=== PATIENT | male | born 1980 | race Caucasian/White ===

== ENCOUNTER 2017-07-30 18:07 | Inpatient (IN) | payer OTHER ==
[~2017-07-30] VITALS: Ht 182.9 cm; Wt 88.0 kg
[2017-07-30] MEDS ORDERED: ASPIRIN 81 MG TAB.CHEW PO ONE (18:30)
[2017-07-30] MEDS ORDERED: KETOROLAC TROMETHAMINE INJ 30 MG/ML VIAL IV ONE (18:30)
[2017-07-30] MEDS ORDERED: IV NS 0.9% 1,000 ML BAG IV ONE (18:30)
--- NOTE | 2017-07-30 18:34 | NUR ---
RAC #18 IV ACCESS. BLOOD SAMPLE COLLECTED SENT TO LAB
--- NOTE | 2017-07-30 18:35 | NUR ---
EKG IN PROGRESS
--- NOTE | 2017-07-30 18:36 | NUR ---
Pt c/o pain in left calf, 5/10, for about 1 week and pain in left chest, 5/10, hurts worse when taking deep breath, started today after flight. Pt states he has been traveling extensively recently. Pt denies SOB, dizziness, n/v, no other complaints, no distress noted.
[2017-07-30 18:37] LABS: BASOPHILS # (AUTO) 0.1 /CMM (0.0-0.2); BASOPHILS % (AUTO) 0.5 % (0.0-2.0); EOSINOPHILS # (AUTO) 0.1 /CMM (0.0-0.7); EOSINOPHILS % (AUTO) 0.8 % (0.0-6.0); HEMATOCRIT 45 % (39-51); HEMOGLOBIN 15.2 g/dL (13.5-17.5); LYMPHOCYTES # (AUTO) 2.8 /CMM (0.8-4.8); LYMPHOCYTES % (AUTO) 23.5 % (20.0-44.0); MEAN CORPUSCULAR HEMOGLOBIN 31 PG (26.0-33.0); MEAN CORPUSCULAR HGB CONC 34 g/dl (31.0-36.0); MEAN CORPUSCULAR VOLUME 91 fL (80-96); MONOCYTES # (AUTO) 0.7 /CMM (0.1-1.30); MONOCYTES % (AUTO) 5.7 % (2.0-12.0); NEUTROPHILS # (AUTO) 8.3 /CMM (1.8-8.9); NEUTROPHILS % (AUTO) 69.5 % (43.0-81.0); PLATELET COUNT (AUTO) 192 /CMM (150-450); RDW COEFFICIENT OF VARIATION 12.1 (11.5-15.0); RED BLOOD CELL COUNT(AUTO) 4.96 MIL/uL (4.5-6.0)
[2017-07-30] MEDS ORDERED: KETOROLAC TROMETHAMINE INJ 30 MG/ML VIAL ONE (18:46)
[2017-07-30] MEDS ORDERED: ASPIRIN 81 MG TAB.CHEW ONE (18:46)
[2017-07-30 18:49] LABS: CALCIUM, SERUM 8.9 mg/dL (8.5-10.1); CARBON DIOXIDE 31 mmol/L (21-32); CHLORIDE 99 mmol/L (98-107); CREATININE 1.1 mg/dL (0.6-1.3); GLUCOSE 102 mg/dL (74-106); POTASSIUM 3.7 mmol/L (3.5-5.1); SODIUM SERUM 136 mmol/L (136-145); UREA NITROGEN, BLOOD 16 mg/dL (7-18)
[2017-07-30 18:51] LABS: INR 0.92 (0.87-1.13); PROTHROMBIN TIME 9.6 SECS (9.5-12.7)
[2017-07-30 18:55] LABS: ALANINE AMINOTRANSFERASE 29 U/L (12-78); ALBUMIN 4.1 g/dL (3.4-5.0); ALKALINE PHOSPHATASE 72 U/L (46-116); ASPARTATE AMINOTRANSFERASE 18 U/L (15-37); BILIRUBIN,DIRECT 0.1 mg/dL (0.0-0.2); BILIRUBIN,TOTAL 0.4 mg/dL (0.2-1.0); TOTAL PROTEIN, SERUM 7.6 g/dL (6.4-8.2)
[2017-07-30] MEDS ORDERED: IV NS 0.9% 250 ML IV ONE (18:59)
[2017-07-30] MEDS ORDERED: IOHEXOL-350 100 ML VIAL IV ONE (18:59)
[2017-07-30 19:02] LABS: TROPONIN I < 0.017 ng/mL (0.00-0.056)
[2017-07-30] MEDS ORDERED: ENOXAPARIN SODIUM 60 MG/0.6 ML DISP.SYRIN SQ ONE ×2 (20:00→20:20)
--- NOTE | 2017-07-30 20:06 | NUR ---
ER MD AT BEDSIDE TALKING TO PT REGARDING CT RESULT AND HOSPITAL ADMISSION. PT AGREED.
--- NOTE | 2017-07-30 20:06 | NUR ---
PT WILL BE GOING TO [facility].
--- NOTE | 2017-07-30 20:19 | NUR ---
REPORT CALLED TO PRODUCT INSPECTION SUPERVISOR ELSA. ER SPOKE TO DR. SULTANA REGARDING PT ADMISSION.
[2017-07-30] MEDS ORDERED: ENOXAPARIN SODIUM 30 MG/0.3 ML DISP.SYRIN ONE (20:20)
--- NOTE | 2017-07-30 20:24 | NUR ---
DR. SULTANA AT BEDSIDE TO [facility] PT.
[2017-07-30 20:50] VITALS: BP 138/83
--- NOTE | 2017-07-30 20:50 | NUR ---
RN [facility] ADMIT NOTES PT RECEIVED FROM THE ED VIA STRETCHER. UNDER DR SULTANA WITH ADMITTING DX ERIBERTO PE. PT A&OX4,AMBULATORY, VSS, AFEBRILE , NO SOB,NO DISTRESS, NO PAIN AT THIS TIME, SKIN ASSESSMENT DONE INTACT. PT ON TELE SR ON MONITOR. ADMISSION RETAIN CARE RENDERED. ALL NEEDS ATTENDED TO CALL LIGHT WITH IN REACH. PT IS RESTING COMFORTABLE IN BED. RN WILL CONTINUE TO MONITOR.
[2017-07-30] MEDS ORDERED: MAG HYDROX/AL HYDROX/SIMETH 30 ML UDC PO PRN (21:00)
[2017-07-30] MEDS ORDERED: HYDROCODONE/APAP 5/325MG 1 EACH TABLET PO PRN (21:00)
[2017-07-30] MEDS ORDERED: ZOLPIDEM TARTRATE 5 MG TABLET PO PRN (21:00)
[2017-07-30] MEDS ORDERED: Z GUARD REMEDY 2 OZ OINT TP PRN (21:00)
[2017-07-30] MEDS ORDERED: MAGNESIUM HYDROXIDE 30 ML UDC PO PRN (21:00)
[2017-07-30] MEDS ORDERED: ONDANSETRON HCL/PF 4 MG/2 ML VIAL IVP PRN (21:00)
[2017-07-30] MEDS ORDERED: ACETAMINOPHEN 325 MG TABLET PO PRN (21:00)
[2017-07-31] VITALS: BP 131/79
[2017-07-31 04:00] VITALS: BP 137/86
[2017-07-31 06:32] LABS: BASOPHILS % (AUTO) 0.3 % (0.0-2.0); EOSINOPHILS # (AUTO) 0.1 /CMM (0.0-0.7); HEMATOCRIT 42 % (39-51); HEMOGLOBIN 14.4 g/dL (13.5-17.5); LYMPHOCYTES % (AUTO) 25.6 % (20.0-44.0); MEAN CORPUSCULAR HEMOGLOBIN 31 PG (26.0-33.0); MEAN CORPUSCULAR HGB CONC 35 g/dl (31.0-36.0); MEAN CORPUSCULAR VOLUME 90 fL (80-96); MONOCYTES # (AUTO) 0.6 /CMM (0.1-1.30); MONOCYTES % (AUTO) 7.4 % (2.0-12.0); NEUTROPHILS # (AUTO) 5.1 /CMM (1.8-8.9); NEUTROPHILS % (AUTO) 65.7 % (43.0-81.0); PLATELET COUNT (AUTO) 154 /CMM (150-450); RDW COEFFICIENT OF VARIATION 12.5 (11.5-15.0); RED BLOOD CELL COUNT(AUTO) 4.62 MIL/uL (4.5-6.0); WHITE BLOOD COUNT (AUTO) 7.8 K/uL (4.3-11.0)
--- NOTE | 2017-07-31 07:06 | NUR ---
[facility] RN NOTES PTS REMAINS IN BED COMFORTABLE, ENDORSE TO RN DAY SHIFT FOR CONTINUITY OF CARE
[2017-07-31 07:17] LABS: ALBUMIN 3.4 g/dL (3.4-5.0); BILIRUBIN,TOTAL 0.6 mg/dL (0.2-1.0); CALCIUM, SERUM 8.7 mg/dL (8.5-10.1); CREATININE 0.9 mg/dL (0.6-1.3); MAGNESIUM 1.8 mg/dL (1.8-2.4); PHOSPHORUS 3.5 mg/dL (2.5-4.9); POTASSIUM 3.8 mmol/L (3.5-5.1); TOTAL PROTEIN, SERUM 6.6 g/dL (6.4-8.2)
[2017-07-31] MEDS ORDERED: MONT10TA22 PO (07:33)
[2017-07-31] MEDS ORDERED: ATOR10TA PO (07:33)
[2017-07-31] MEDS ORDERED: ATEN50TA PO (07:33)
[2017-07-31] MEDS ORDERED: ALBU6.7H IH (07:33)
[2017-07-31] MEDS ORDERED: ZOLP5TAB2 PO (07:33)
[2017-07-31] MEDS ORDERED: RANI300T4 PO (07:33)
[2017-07-31 08:00] VITALS: BP 127/85
[2017-07-31] MEDS: RIVAROXABAN 15 MG TABLET PO SCH ×2 (08:14→16:31)
--- NOTE | 2017-07-31 09:00 | NUR ---
RN [facility] RECEIVED PATIENT AWAKE SITTING ON BED ON ROOM AIR COMPLAINTS OF MILD CHEST PAIN AFEBRILE MONITORED CLOSELY NO COMPLAINTS OF LEG PAIN AMBULATORY
[2017-07-31 12:00] VITALS: BP 134/88
[2017-07-31 16:00] VITALS: BP 135/86
[2017-07-31 20:00] VITALS: BP 130/73
--- NOTE | 2017-07-31 20:01 | NUR ---
Patient lives at home with family.He is ambulatory and independent with adl's. 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 Family will provide ride home once discharge. Addendum: 07/31/17 at 2000 by CASH HERNANDEZ RN Amended: Links added.
--- NOTE | 2017-07-31 20:04 | NUR ---
TELE 1 RN NOTE PT IN BED SITTING UP, A/A/O X 4, NO SOB, NO DISTRESS OR DISCOMFORT NOTED. PAIN IN CHEST AT 2/10 LEVEL, REMINDED PT IF PAIN GOES UP AND ANY DISCOMFORT TO LET ME KNOW. ON TELE SR HR 68. RAC #20 G H/L INTACT AND PATENT. SIDE RAILS UP X 2 AND CALL LIGHT WITHIN REACH. VSS. CONTINUE TO MONITOR HIM.
--- NOTE | 2017-07-31 23:20 | NUR ---
MEDIA ASSISTANT NOTE PT REQUESTING FOR SLEEPING MED AND FOR MINOR PAIN 3/10 IN CHEST. AMBIEN 5 MG PO FOR SLEEP AND TYLENOL 650 MG PO GIVEN FOR MINOR PAIN. CONTINUE TO MONITOR HIM.
[2017-08-01] VITALS: BP 136/73
[2017-08-01 00:04] VITALS: BP 136/73
--- NOTE | 2017-08-01 00:20 | NUR ---
TELE 1 RN NOTE PAIN SUBSIDED 1/10 IN CHEST AREA. ALSO PT FALL ASLEEP. EASILY AROUSABLE. CONTINUE TO MONITOR HIM.
[2017-08-01 05:00] VITALS: BP 135/80
--- NOTE | 2017-08-01 06:40 | NUR ---
TELE 1 RN NOTE PT IN BED AWAKE. NO DISTRESS OR DISCOMFORT NOTED. DENIES PAIN. SLEPT WELL DURING THE NIGHT. ON TELE SR HR 80. DURING NIGHT PT WAS SB IN 50'S AND LOWEST WENT TO 40 THEN CAME BACK UP RIGHT AWAY, PT DENIED ANY DISTRESS. SIDE RAILS UP X 2 AND CALL LIGHT WITHIN REACH. WILL ENDORSE TO DAY SHIFT NURSE FOR CONTINUE TO CARE.
[2017-08-01 08:00] VITALS: BP 133/86
[2017-08-01] MEDS: RIVAROXABAN 15 MG TABLET PO SCH (08:23)
[2017-08-01] MEDS ORDERED: Rivaroxaban PO (12:22)
--- NOTE | 2017-08-01 12:47 | NUR ---
LICENSED MASTER SOCIAL WORKER NOTES PATIENT DISCHARGED HOME WITH AT BED SIDE. EXIT CARE DONE. BELONGINGS LIST SIGNED. ID BAND AND IV HEPLOCK REMOVED. ALL ORDERS CARRIED OUT. PRESCRIPTION GIVEN TO PATIENT. ALL DISCHARGE INSTRUCTIONS GIVEN TO PATIENT. EDUCATIONAL MATERIAL GIVEN TO PATIENT. VITAL SIGNS STABLE AND WITHIN DESIRED LIMITS. PATIENT WALKED TO [facility] AND VERBALIZED HE WILL USE THEIR PRIVATE CAR TO GO HOME WITH . EDUCATED IMPORTANCE OF FOLLOWING UP WITH PCP WITHIN 1 WEEK. EDUCATED REGARDING DISEASE PROCESS OF PULMONARY EMBOLISM. VERBALIZED UNDERSTANDING. Addendum: 08/01/17 at 1311 by MIRTHA COLVIN RN ADDENDUM TO LICENSED MASTER SOCIAL WORKER NOTES PATIENT'S PRIMARY CARE PHYSICIAN'S INFORMATION DR WILI MEJIA TEL. ADDRESS: [address] [place] [address]. [place], [place] WILL REPORT TO DR. JHONATHAN LEACH.
[2017-08-01 13:12] LABS: AFP, TUMOR MARKER 37.3 ng/mL (0.0-8.3)
== END 2017-08-01 12:52 | disposition home or self-care (01) | DRG 176 ==
LOC: ER 18:10 → TELE-TD 20:50 → TELE1 07-31 10:02 → MEDSG1 08-01 10:26
PROVIDERS: ADMIT Internal Medicine; ATTEND Internal Medicine
DX: I26.99 Other pulmonary embolism without acute cor pulmonale (principal); D68.59 Other primary thrombophilia; I10 Essential (primary) hypertension; K21.9 Gastro-esophageal reflux disease without esophagitis; Z82.49 Family history of ischemic heart disease and other diseases of the circulatory system; Z80.3 Family history of malignant neoplasm of breast; Z79.899 Other long term (current) drug therapy
CPT/HCPCS: 36415; 71010-TC; 80048-TC; 80053-TC; 80061-TC; 80076-TC; 81241; 82105; 82378; 83090; 83735-TC; 84100-TC; 84484-TC; 85025-TC; 85303; 85730-TC; 86301; 87081-TC; 93307-TC; 93970-TC; A4606; J1650; J1885; J7030; J7050; Q9967; Z7610